=== PATIENT | female | born 1965 | race Caucasian/White ===

== ENCOUNTER 2019-08-02 16:47 | Outpatient (CLI) | payer SELFPAY | END 2019-08-02 16:48 | disposition home or self-care (01) | LOC: COV 16:47 | PROVIDERS: ATTEND Family Medicine | DX: R50.9 Fever, unspecified (principal); R05 Cough; M79.10 Myalgia, unspecified site; Z20.828 Contact with and (suspected) exposure to other viral communicable diseases | CPT/HCPCS: 81599 ==

== ENCOUNTER 2021-12-13 10:47 | Emergency (ER) | payer BC, OTHER ==
[2021-12-13] MEDS ORDERED: SODIUM CHLORIDE 0.9% 1,000 ML IV STA (10:59)
[2021-12-13 11:17] LABS: BASOPHILS % (AUTO) 0.6 %; EOSINOPHILS % (AUTO) 1.1 %; HCT - HEMATOCRIT 39.7 % (37.0-47.0); HGB - HEMOGLOBIN 13.4 g/dL (12.0-16.0); LYMPHOCYTES # (AUTO) 0.7 10^3/uL (1.5-3.5); LYMPHOCYTES % (AUTO) 18.7 %; MEAN CORPUSCULAR HEMOGLOBIN 29.8 pg (27.0-31.0); MEAN CORPUSCULAR HGB CONC 33.8 g/dL (32.0-36.0); MEAN CORPUSCULAR VOLUME 88.4 fL (81.0-99.0); MEAN PLATELET VOLUME 10.1 fL (7.9-10.8); MONOCYTES # (AUTO) 0.3 10^3/uL (0.0-1.0); MONOCYTES % (AUTO) 7.4 %; NEUTROPHILS # (AUTO) 2.6 10^3/uL (1.5-6.6); NEUTROPHILS % (AUTO) 71.9 %; PLT - PLATELET COUNT 172 10^3/uL (130-450); RED BLOOD COUNT 4.49 10^6/uL (4.20-5.40); RED CELL DISTRIBUTION WIDTH 12.9 % (12.0-15.0); WHITE BLOOD COUNT 3.6 x10^3/uL (4.8-10.8)
--- NOTE | 2021-12-13 11:41 | ED Physician Documentation ---
PD HPI CHEST PAIN - Stated complaint Stated Complaint: CHEST TIGHTNESS - Chief complaint Chief Complaint: Cardiac - History obtained from History obtained from: Patient - Additional information Additional information: The patient comes to the emergency department with chief complaint of chest tightness that is occurred twice in the last 24 hours. 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 She states she was out for a run yesterday and she began to feel a tightness in her chest and so she decided to stop and walk for a bit. Patient states that the tightness went away when she stopped. She states that she did have any more problem with it For the rest of the day, but this morning, she woke up and felt tightness in her upper mid chest with some radiation into her right shoulder. Patient states that it hurt worse when she took a deep breath. She states she called her primary doctor's office and that the nurse told her to come to the ED. The patient sta tangela that she has no personal known history of coronary artery disease. She has a history of hyperlipidemia and states that her doctor wanted to put her on a statin this last spring but that the patient's balked and instead wanted her to try lifestyle changes instead. The patient states she made some very big nutritional changes and is actually working with a dietitian. She states that s he runs several times a week and that she is due to have repeat blood work in January. The patient denies any history of diabetes, hypertension, or smoking. She states that there is "heart disease" in her family. The patient denies any symptoms currently, other than a very slight feeling of tightness in her right shoulder. She denies any associated symptoms such as shortness of breath, Nausea, diaphoresis, or lightheadedness. She states she otherwise feels very well. No other complaints at this time. No other episodes of exertional chest discomfort. Review of Systems Ten Systems: 10 systems reviewed and negative Constitutional: reports: Reviewed and negative Eyes: reports: Reviewed and negative Ears: reports: Reviewed and negative Nose: reports: Reviewed and negative Throat: reports: Reviewed and negative Cardiac: reports: Chest pain / pressure Respiratory: reports: Reviewed and negative GI: reports: Reviewed and negative : reports: Reviewed and negative Skin: reports: Reviewed and negative Musculoskeletal: reports: Reviewed and negative Neurologic: reports: Reviewed and negative Psychiatric: reports: Reviewed and negative Endocrine: reports: Reviewed and negative Immunocompromised: reports: Reviewed and negative PD PAST MEDICAL HISTORY - Past Medical History Cardiovascular: High cholesterol Respiratory: None Endocrine/Autoimmune: None GI: None WOOL SAMPLER: None : None HEENT: None Psych: None Musculoskeletal: None Derm: None - Past Surgical History Past Surgical History: No - Present Medications Home Medications: Ambulatory Orders Medication Instructions Recorded Confirmed Aspirin Chewable [[facility] [place] 81 mg PO DAILY #30 tablet 12/13/21 Aspirin] Atorvastatin [Lipitor] 20 mg PO DAILY 12/13/21 12/13/21 - Allergies Allergies/Adverse Reactions: Allergies Allergy/AdvReac Type Severity Reaction Status Date / Time No Known Drug Allergies Allergy Verified 05/28/15 05:41 - Social History Does the pt smoke?: No Smoking Status: Never smoker Does the pt drink ETOH?: No Does the pt have substance abuse?: No - Immunizations Immunizations are current?: Yes - POLST Patient has POLST: No PD ED PE NORMAL - Vitals Vital signs reviewed: Yes - General General: Alert and oriented X 3, No acute distress, Well developed/nourished - HEENT HEENT: Atraumatic, PERRL, EOMI, Moist mucous membranes - Neck Neck: Supple, no meningeal sign - Cardiac Cardiac: RRR, No murmur, Strong equal pulses - Respiratory Respiratory: No respiratory distress, Clear bilaterally - Abdomen Abdomen: Soft, Non tender, Non distended - Derm Derm: Normal color, Warm and dry, No rash - Extremities Extremities: No deformity, No edema - Neuro Neuro: Alert and oriented X 3 - Psych Psych: Normal mood, Normal affect Results - Vitals Vitals: Vital Signs - 24 hr 12/13/21 12/13/21 12/13/21 10:56 12:24 13:00 Temperature 37.0 C Heart Rate 110 H 64 57 L Respiratory 19 18 16 Rate Blood Pressure 127/88 H 104/78 110/76 O2 Saturation 99 100 100 12/13/21 12/13/21 12/13/21 13:30 14:00 14:29 Temperature Heart Rate 58 L 64 66 Respiratory 14 23 15 Rate Blood Pressure 104/74 96/68 97/72 O2 Saturation 99 100 96 Oxygen O2 Source Room air - EKG (time done) 1056 Rate: Rate (enter#) (1056) Rhythm: NSR, LAE [place]: LAD (Borderline) Intervals: Normal AK QRS: Normal Ischemia: Normal ST segments, Non specific changes Compare to prior EKG: Old EKG unavailable Computer interpretation: Agree with computer - Labs Labs: Laboratory Tests 12/13/21 12/13/21 12/13/21 11:07 11:07 11:07 WBC 3.6 L RBC 4.49 Hgb 13.4 Hct 39.7 MCV 88.4 MCH 29.8 MCHC 33.8 RDW 12.9 Plt Count 172 MPV 10.1 Neut # (Auto) 2.6 Lymph # (Auto) 0.7 L [place] # (Auto) 0.3 Eos # (Auto) 0.0 Baso # (Auto) 0.0 Absolute Nucleated RBC 0.00 Nucleated RBC % 0.0 Sodium 142 Potassium 3.6 Chloride 104 Carbon Dioxide 30 Anion Gap 8.0 BUN 13 Creatinine 0.5 Estimated GFR (MDRD) 127 Glucose 95 Calcium 9.9 Total Bilirubin 0.9 AST 18 ALT 20 Alkaline Phosphatase 54 Troponin I High Sens < 2.3 L Total Protein 7.2 Albumin 4.6 Globulin 2.6 Albumin/Globulin Ratio 1.8 Lipase 32 12/13/21 12:45 WBC RBC Hgb Hct MCV MCH MCHC RDW Plt Count MPV Neut # (Auto) Lymph # (Auto) [place] # (Auto) Eos # (Auto) Baso # (Auto) Absolute Nucleated RBC Nucleated RBC % Sodium Potassium Chloride Carbon Dioxide Anion Gap BUN Creatinine Estimated GFR (MDRD) Glucose Calcium Total Bilirubin AST ALT Alkaline Phosphatase Troponin I High Sens < 2.3 L Total Protein Albumin Globulin Albumin/Globulin Ratio Lipase - Rads (name of study) Chest x-ray Radiology: Final report received, EMP read indepedently, See rad report (Negative) PD MEDICAL DECISION MAKING - ED course Complexity details: reviewed results, re-evaluated patient, considered differential, d/w patient ED course: The patient was fairly well-appearing in the emergency department and was worked up with labs, EKG, and chest x-ray. She was given an aspirin. Work-up was unremarkable, including a repeat troponin. The patient was fairly low risk for coronary artery disease, and chest discomfort was worse with deep breaths. However, given that the initial episode came on while the patient was running, and given that both her father and brother have coronary artery disease, I did recommend to the patient that she make the next soonest appointment with her primary care physician to follow-up and discuss having a stress test done. I have started her on a daily baby aspirin. The patient declines to have nitroglycerin at this time. We have discussed that she should have a very low threshold for returning to the emergency department, should any of her symptoms worsen. We have discussed the usual indications for return. Departure - Departure Disposition: 01 Home, Self Care Clinical Impression: Chest pain Qualifiers: Chest pain type: chest pain on breathing Qualified Code(s): R07.1 - Chest pain on breathing Condition: Stable Instructions: ED Chest Pain Atypical Unkn Cause Prescriptions: Aspirin Chewable [[facility] [place] Aspirin] 81 mg PO DAILY #30 tablet Comments: Your labs, chest x-ray, and EKG all look good. There is no evidence of heart attack today, nor is there evidence of any of the other emergent causes of chest pain. The discomfort that worsens with deep breathing makes the likelihood of a musculoskeletal source of discomfort much higher; however, this does not entirely rule out potential coronary artery disease and as such, it is very important that you follow-up with your primary doctor to discuss being scheduled for a stress test. In the meantime, you may take a baby aspirin daily to help prevent onset of further coronary artery disease, should any be present in the first place. You have declined to take nitroglycerin on an as-needed basis today. Please be sure you drink plenty of fluids. Please follow-up with your primary care physician as soon as possible. Discharge Date/Time: 12/13/21 14:29
[2021-12-13] MEDS ORDERED: ASPIRIN CHEW 81 MG TABLET PO STA (11:43)
--- NOTE | 2021-12-13 12:04 | XRAY Report ---
PROCEDURE: Chest 1 View X-Ray INDICATIONS: chest pain TECHNIQUE: One view of the chest was acquired. COMPARISON: None FINDINGS: Surgical changes and devices: None. Lungs and pleura: No pleural effusions or pneumothorax. Lungs are clear. Mediastinum: Mediastinal contours appear normal. Heart size is normal. Bones and chest wall: No suspicious bony lesions. Overlying soft tissues appear unremarkable. IMPRESSION: No acute process. Reviewed by: Bev Kincaid MD on 12/13/2021 12:03 PM PDT Approved by: Bev Kincaid MD on 12/13/2021 12:03 PM PDT Station ID: [id number]
[2021-12-13 12:05] LABS: ALBUMIN 4.6 g/dL (3.2-5.5); ALBUMIN/GLOBULIN RATIO 1.8 (1.0-2.2); BILIRUBIN,TOTAL 0.9 mg/dL (0.2-1.0); CALCIUM 9.9 mg/dL (8.5-10.3); CREATININE 0.5 mg/dL (0.4-1.0); POTASSIUM 3.6 mmol/L (3.5-5.0); TOTAL PROTEIN 7.2 g/dL (6.7-8.2)
[2021-12-13 14:30] VITALS: BP 97/72
== END 2021-12-13 14:29 | disposition home or self-care (01) ==
LOC: ED 10:47
DX: R07.9 Chest pain, unspecified (principal)
CPT/HCPCS: 36415; 71045; 80053; 83690; 84484; 85025; 93005; 99283; 99284; A9270